=== PATIENT | female | born 1945 | race Caucasian/White ===

== ENCOUNTER 2022-09-22 14:05 | Outpatient (REF) | payer MEDICARE, SELFPAY ==
--- NOTE | ~2022-09-22 | XR_ITS ---
EXAMINATION: CHEST AND SINUSES. CLINICAL INFORMATION: Chronic cough COMPARISON: None TECHNIQUE: 2 views chest and 4 views sinus exam. FINDINGS: Chest: The lungs are well-expanded and clear of acute pneumonic process. The heart size and pulmonary vascularity is within normal limits. There are surgical adeola along the right axilla and anterior chest wall and left lateral breast. XR/XR chest 2V IMPRESSION: Unremarkable chest exam
--- NOTE | ~2022-09-22 | XR_ITS ---
EXAMINATION: CHEST AND SINUSES. CLINICAL INFORMATION: Chronic cough COMPARISON: None TECHNIQUE: 2 views chest and 4 views sinus exam. FINDINGS: Chest: The lungs are well-expanded and clear of acute pneumonic process. The heart size and pulmonary vascularity is within normal limits. There are surgical adeola along the right axilla and anterior chest wall and left lateral breast. XR/XR sinus min 3V IMPRESSION: Unremarkable chest exam
== END 2022-09-22 14:06 | disposition home or self-care (01) ==
LOC: HO.XRAY 14:05
PROVIDERS: PCP Internal Medicine; Visit Provider Otolaryngology
DX: R05.8 Other specified cough (principal); J32.9 Chronic sinusitis, unspecified
CPT/HCPCS: 70220; 71046